=== PATIENT | female | born 1975 | race Caucasian/White ===

== ENCOUNTER 2017-01-20 04:15 | Emergency (ER) | payer OTHER ==
[~2017-01-20] VITALS: Ht 165.1 cm; Wt 152.0 kg
[~2017-01-20 04:15] MED LIST: BENZ0.5T PO; LASI20TA PO; QUET300 PO; SERO300T PO; TOPI100 PO; VENL75 PO
[2017-01-20 04:19] VITALS: BP 120/74; PULSE 88; RESP 16; TEMP 97.6; O2SAT 99
[2017-01-20] MEDS ORDERED: COGENTIN (04:26)
[2017-01-20] MEDS ORDERED: VENL75XR PO (04:26)
[2017-01-20] MEDS ORDERED: TOPA100T11 PO (04:26)
[2017-01-20] MEDS ORDERED: SERO100T PO (04:26)
--- NOTE | 2017-01-20 06:05 | PD ---
HPI Chief Complaint: Psychiatric Symptoms Time Seen by Provider: 05:17 Travel History International Travel<30 days: No Contact w/Intl Traveler<30days: No Traveled to known affect area: No History of Present Illness HPI 41-year-old white female presents to emergency department by nonemergent transport from a hotel in [place]. The patient states that she had gone to an urgent care earlier but was advised to come to the ER per her medical complaints. The patient states that she has partial seizures. She states that this is stemming from a head injury. She also states that she has chronic pain and mental illness. She states that she feels hopeless and feels that she needs to be evaluated. She reports having a workup recently but they have not been able to determine the etiology of her symptoms. She states that she is post be being referred to a neuropsychiatrist per the patient. She states that she has chronic pain in problems ambulating but she does not use a walker or cane. She states that she cannot take opiates. The patient states that she has been told the past that her symptoms seemed to start from a psychiatric origin. She is not convinced that her symptoms are from mental health problems. She would like to get a second opinion. [facility] Past Medical History Narrative Medical Anxiety, depression, chronic pain, partial seizures Bipolar Disorder: Yes Anxiety: Yes Depression: Yes Endocrine: No Genitourinary: No Immune Disorder: No Musculoskeletal: No Neurologic: Yes Reproductive: No Respiratory: No Tetanus Vaccination: < 5 Years Influenza Vaccination: Yes ?: Not Social History Alcohol Use: No Tobacco Use: No Substance Use: No (DENIES) Allergies-Medications (Allergen,Severity, Reaction): Coded Allergies: dextroamphetamine (Unverified Adverse Reaction, Severe, Anaphylaxis, ) haloperidol (Unverified Adverse Reaction, Severe, Anaphylaxis, 01/20/17) Uncoded Allergies: THERMOGENICS (Adverse Reaction, Severe, Anaphylaxis, 12/15/15) Reported Meds & Prescriptions Reported Meds & Active Scripts Active Reported [Angela Krause] Seroquel (Quetiapine Fumarate) 100 Mg Tab 100 Mg PO HS Topamax (Topiramate) 100 Mg Tab 100 Mg PO BID Effexor XR 24 HR (Venlafaxine HCl) 75 Mg Cap 75 Mg PO DAILY Review of Systems Except as stated in HPI: all other systems reviewed are Neg General / Constitutional: No: Fever, Chills Eyes: No: Blurred Vision, Photophobia HENT: Positive: Headaches, No: Lightheadedness Cardiovascular: No: Chest Pain or Discomfort, Palpitations Respiratory: No: Cough, Shortness of Breath Gastrointestinal: No: Nausea, Vomiting Genitourinary: No: Dysuria, Hematuria Musculoskeletal: Positive: Myalgias, Arthralgias, Limited ROM, Weakness, Pain Skin: No Rash, No Itching, No Dryness Neurologic: Positive: Weakness, Dizziness, Headache, No: Paresthesia Psychiatric: Positive: Depression, Mood Disorder, No: Anxiety, Suicidal Ideations, Homicidal Ideation Physical Exam Narrative GENERAL: Well-developed, morbidly obese in no apparent distress. Nontoxic appearing. HEAD: Normocephalic, atraumatic. EYES: Pupils equal round and reactive. Extraocular motions intact. No scleral icterus. No injection or drainage. ENT: Nose clear. Throat without erythema, tonsillar hypertrophy or exudate. Uvula midline. Airway patent. NECK: Trachea midline. Supple, nontender, moves head freely. No central bony tenderness or spasm. CARDIOVASCULAR: Regular rate and rhythm without murmurs, gallops, or rubs. RESPIRATORY: Clear to auscultation. Breath sounds equal bilaterally. No wheezes , rales, or rhonchi. GASTROINTESTINAL: Abdomen soft, non-tender, nondistended. No hepato-splenomegaly , or palpable masses. No guarding. EXTREMITIES: No clubbing, cyanosis, large lower extremities. Complaints of pain in her lower legs which is slight touch. Ambulates only 1 or 2 steps without complaining of pain and refuses to walk any further. BACK: Complains of lower back pain Palpation without deformity. No flank tenderness. NEUROLOGICAL: Awake, alert and oriented x 3 .Cranial nerves grossly intact. Motor and sensory grossly within normal limits. Normal speech. Data Data Last Documented VS Vital Signs Date Time Temp Pulse Resp B/P (MAP) Pulse Ox O2 Delivery O2 Flow Rate FiO2 01/20/17 04:19 97.6 88 16 120/74 (89) 99 Orders Orders Complete Blood Count With Diff (01/20/17 05:38) Comprehensive Metabolic Panel (01/20/17 05:38) Urinalysis - C+S If Indicated (01/20/17 05:38) Ed Urine Pregnancytest Poc (01/20/17 05:38) Psych Screen (01/20/17 05:38) Drug Screen, Random Urine (01/20/17 05:38) Alcohol (Ethanol) (01/20/17 05:38) MDM Medical Decision Making Medical Screen Exam Complete: Yes Emergency Medical Condition: Yes Medical Record Reviewed: Yes Differential Diagnosis MDM: High Differential diagnoses: Schizophrenia, schizoaffective disorder, bipolar, anxiety, depression, adjustment reaction, mood disorder NOS, ODD, depressive disorder NOS, dementia, dementia with agitation, psychosis NOS, substance induced mood disorder, intermittent explosive disorder, Asperger syndrome, infection,electrolyte abnormality, malingering. Narrative Course Mental health screening discussed with the patient. Psychiatric screen ordered. Mark Stewart Jan 20, 2017 06:05
[2017-01-20 06:20] LABS: AUTOMATED NEUTROPHIL # 4.7 TH/MM3 (1.8-7.7); BASOPHIL % 0.5 % (0.0-2.0); EOSINOPHIL # 0.2 TH/MM3 (0-0.4); EOSINOPHIL % 3.3 % (0.0-4.0); HEMO FLAGS DIFF FINAL; LYMPH % 22.8 % (9.0-44.0); LYMPHOCYTE # 1.6 TH/MM3 (1.0-4.8); MEAN CELL VOLUME 94.7 FL (80.0-100.0); MEAN CORPUSCULAR HEMOGLOBIN 31.9 PG (27.0-34.0); MEAN CORPUSCULAR HGB CONC 33.7 % (32.0-36.0); MONO % 6.5 % (0.0-8.0); NEUT % 66.9 % (16.0-70.0); PLATELET COUNT 229 TH/MM3 (150-450); RED BLOOD COUNT 4.01 MIL/MM3 (4.00-5.30); RED CELL DISTRIBUTION WIDTH 13.4 % (11.6-17.2)
[2017-01-20 06:49] LABS: ALT (GPT) 29 U/L (10-53); ANION GAP 7 MEQ/L (5-15); AST (GOT) 16 U/L (15-37); BICARBONATE 23.4 MEQ/L (21.0-32.0); BLOOD UREA NITROGEN 15 MG/DL (7-18); CHLORIDE 109 MEQ/L (98-107); GLOMERULAR FILTRATION RATE 72 ML/MIN (>89); POTASSIUM 3.7 MEQ/L (3.5-5.1); SODIUM (NA) 139 MEQ/L (136-145)
[2017-01-20 06:51] LABS: ALKALINE PHOSPHATASE 109 U/L (45-117); TOTAL BILIRUBIN ADULT 0.4 MG/DL (0.2-1.0)
[2017-01-20 06:57] LABS: ALCOHOL LESS THAN 3 MG/DL (0-5)
[2017-01-20 08:09] VITALS: BP 133/65; PULSE 83; RESP 16; O2SAT 100
--- NOTE | 2017-01-20 12:53 | PD ---
Data Data Last Documented VS Vital Signs Date Time Temp Pulse Resp B/P (MAP) Pulse Ox O2 Delivery O2 Flow Rate FiO2 01/20/17 08:09 83 16 133/65 (87) 100 Room Air 01/20/17 04:19 97.6 Orders Orders Complete Blood Count With Diff (01/20/17 05:38) Comprehensive Metabolic Panel (01/20/17 05:38) Urinalysis - C+S If Indicated (01/20/17 05:38) Ed Urine Pregnancytest Poc (01/20/17 05:38) Psych Screen (01/20/17 05:38) Drug Screen, Random Urine (01/20/17 05:38) Alcohol (Ethanol) (01/20/17 05:38) Diet Regular Basic (01/20/17 Breakfast) Labs Laboratory Tests Test 01/20/17 06:00 White Blood Count 7.0 TH/MM3 Red Blood Count 4.01 MIL/MM3 Hemoglobin 12.8 GM/DL Hematocrit 38.0 % Mean Corpuscular Volume 94.7 FL Mean Corpuscular Hemoglobin 31.9 PG Mean Corpuscular Hemoglobin Concent 33.7 % Red Cell Distribution Width 13.4 % Platelet Count 229 TH/MM3 Mean Platelet Volume 8.4 FL Neutrophils (%) (Auto) 66.9 % Lymphocytes (%) (Auto) 22.8 % Monocytes (%) (Auto) 6.5 % Eosinophils (%) (Auto) 3.3 % Basophils (%) (Auto) 0.5 % Neutrophils # (Auto) 4.7 TH/MM3 Lymphocytes # (Auto) 1.6 TH/MM3 Monocytes # (Auto) 0.5 TH/MM3 Eosinophils # (Auto) 0.2 TH/MM3 Basophils # (Auto) 0.0 TH/MM3 CBC Comment DIFF FINAL Differential Comment Blood Urea Nitrogen 15 MG/DL Creatinine 0.86 MG/DL Random Glucose 101 MG/DL Total Protein 6.8 GM/DL Albumin 3.5 GM/DL Calcium Level 9.0 MG/DL Alkaline Phosphatase 109 U/L Aspartate Amino Transf (AST/SGOT) 16 U/L Alanine Aminotransferase (ALT/SGPT) 29 U/L Total Bilirubin 0.4 MG/DL Sodium Level 139 MEQ/L Potassium Level 3.7 MEQ/L Chloride Level 109 MEQ/L Carbon Dioxide Level 23.4 MEQ/L Anion Gap 7 MEQ/L Estimat Glomerular Filtration Rate 72 ML/MIN Ethyl Alcohol Level LESS THAN 3 MG/DL MDM Medical Record Reviewed: Yes Supervised Visit with JENA: No Narrative Course CBC & BMP Diagram 01/20/17 06:00 Total Protein 6.8, Albumin 3.5, Calcium Level 9.0, Alkaline Phosphatase 109, Aspartate Amino Transf (AST/SGOT) 16, Alanine Aminotransferase (ALT/SGPT) 29, Total Bilirubin 0.4 Pt seen and evaluated with DIOGENES Parks present. Pt reports she is willing to leave the hospital. She states she will go the [facility] to see PMD. She requests cab voucher however states she can get a ride via other means. Diagnosis Primary Impression: Multiple complaints Referrals: [facility] 1 day Med/Other Pt SpecificInfo: No Change to Meds Disposition: 01 DISCHARGE HOME Condition: Stable Danny Nieto MD Jan 20, 2017 12:53
== END 2017-01-20 13:33 | disposition home or self-care (01) ==
LOC: NEPD 04:15 → NEPB 13:33
DX: G89.29 Other chronic pain (principal); F31.9 Bipolar disorder, unspecified
CPT/HCPCS: 80053; 80307; 85025; 99283